=== PATIENT | male | born 1990 | race Caucasian/White ===

== ENCOUNTER 2019-04-13 09:03 | Emergency (ER) | payer BC ==
--- NOTE | 2019-04-13 10:42 | EDM.PDOC ---
ED HPI GENERAL MEDICAL PROBLEM - General Stated Complaint: CUT FINGER Time Seen by Provider: 04/13/19 09:30 Source of Information: Reports: Patient History Limitations: Reports: No Limitations - History of Present Illness INITIAL COMMENTS - FREE TEXT/NARRATIVE: This patient presents to the ED for evaluation of a laceration. He was opening a package when he lacerated his finger with a knife. He denies other injuries or concerns. - Related Data Allergies Allergy/AdvReac Type Severity Reaction Status Date / Time amoxicillin Allergy Hives Verified 04/13/19 09:32 Home Meds: Home Meds NK [No Known Home Meds] 04/13/19 [History] ED ROS GENERAL - Review of Systems Review Of Systems: Comprehensive ROS is negative, except as noted in HPI. ED EXAM, SKIN/RASH Exam: See Below Exam Limited By: No Limitations General Appearance: Alert, WD/WN, No Apparent Distress Eye Exam: Bilateral Eye: PERRL Ears: Normal External Exam Nose: Normal Inspection Throat/Mouth: Normal Inspection Head: Atraumatic, Normocephalic Neck: Normal Inspection Respiratory/Chest: No Respiratory Distress Neurological: Alert, Oriented Psychiatric: Normal Affect Skin: Warm, Dry, Wound/Incision (2 cm laceration palmar surface, right 1st digit overlying joint between proximal & medial phalange) ED SKIN PROCEDURES - Laceration/Wound Repair Right Digit - 2nd (Index) Appearance: Subcutaneous, Clean Distal NVT: Neuro & Vascular Intact, No Tendon Injury Anesthetic Type: Local Local Anesthesia - Lidocaine (Xylocaine): 1% Plain Local Anesthetic Volume: 5cc Skin Prep: Providone-Iodine (Betadine), Saline Exploration/Debridement/Repair: Wound Explored, In a Bloodless Field, Explored to Base, No Foreign Material Found Closed with: Sutures Lac/Wound length In cm: 2 Suture Size: 5-0 # of Sutures: 6 Suture Type: Simple, Other (vicryl) Sterile Dressing Applied: Provider Tetanus Status Addressed: Yes Complications: No Course - Vital Signs Last Recorded V/S: Last Vital Signs Temp 36.6 C 04/13/19 09:45 Pulse 75 04/13/19 09:45 Resp 20 04/13/19 09:45 BP 117/65 04/13/19 09:45 Pulse Ox 100 04/13/19 09:45 Departure - Departure Time of Disposition: 10:30 Disposition: Home, Self-Care 01 Condition: Good Clinical Impression: Laceration - Discharge Information *PRESCRIPTION DRUG MONITORING PROGRAM REVIEWED*: Not Applicable Instructions: Laceration Care, Adult Referrals: PCP,None [Primary Care Provider] - Care Plan Goals: Follow up with any problems. Will disolve in 1 week. Sepsis Event Note - Evaluation Sepsis Screening Result: No Definite Risk - Focused Exam Vital Signs: Vital Signs Temp Pulse Resp BP Pulse Ox 04/13/19 09:45 36.6 C 75 20 117/65 100 Date Exam was Performed: 04/13/19 Time Exam was Performed: 10:37
== END 2019-04-13 09:45 | disposition home or self-care (01) ==
LOC: LB.ED 09:03
DX: S61.210A Laceration without foreign body of right index finger without damage to nail, initial encounter (principal); Z88.1 Allergy status to other antibiotic agents; W26.0XXA Contact with knife, initial encounter
CPT/HCPCS: 12001; 99282-25